=== PATIENT | male | born 1995 | race Caucasian/White ===

== ENCOUNTER 2019-02-04 15:13 | Day surgery (SDC) | payer BC, OTHER ==
--- NOTE | 2019-01-21 10:32 | PREOPHP ---
DATE OF ADMISSION: 02/04/2019 REASON FOR CONSULTATION: Consultation requested by Dr. Quyen Osman for medical evaluation and clearance of a 23-year-old gentleman about to undergo surgery. Thank you, Dr. Osman for allowing us to participate in the care of this patient. HISTORY OF PRESENT ILLNESS: Darwin Cedeño is a 23-year-old gentleman had an accident at work and suffered a comminuted displaced fracture of his right clavicle and currently is being admitted for open reduction and internal fixation of that particular fracture. In terms of Mr. Cedeño' prior medical history, he has had no medical hospitalizations, only surgical procedure he ever had done was a circumcision and other than his fractured right clavicle, when he was younger, he fractured his right arm. Other than that, he has been healthy, he has had no hospitalizations. MEDICATIONS: He takes no chronic medications. ALLERGIES: NOT ALLERGIC TO ANY MEDICATIONS. SOCIAL HISTORY: The patient is single, has no children. He vapes with nicotine, alcohol socially. He does drink coffee. Has no difficulty sleeping at night and is employed. FAMILY HISTORY: Father and mother are both in her 50s. Father has kidney issues. Mother is in good health. One brother is in good health. There is a family history of diabetes and heart as well as cancer and hypertension, no stroke or thyroid. REVIEW OF SYSTEMS: HEENT: He denies any headaches, diplopia, denies any significant headaches or visual or balance issues. CARDIORESPIRATORY: He denies any chest pain or shortness of breath. GASTROINTESTINAL: No melena or hematemesis. GENITOURINARY: No urgency, frequency. MUSCULOSKELETAL: Positive for right clavicular pain. NEUROPSYCHIATRIC: Unremarkable. GENERAL HEALTH: As above. PHYSICAL EXAMINATION: VITAL SIGNS: The patient's blood pressure was 140/76, pulse was 72 and regular, respirations were 18, temperature 98.7, height 5 feet 4 inches, weight 187 pounds. GENERAL: The patient was noted to be a well-developed, well-nourished male, alert and cooperative, in no apparent acute distress, oriented to time, place, and person. HEAD, EARS, EYES, NOSE AND THROAT: Head was atraumatic. Eyes: Pupils were equal, reactive to light and accommodation. Fundi were benign. Tympanic membranes were unremarkable. Nose was negative. Mouth was unremarkable. Fair oral hygiene was present. NECK: Supple without any rigidity. Trachea was midline. Thyroid was within normal limits. Neck veins were flat. Carotid pulses were equal. BACK: Unremarkable. CHEST: Fairly symmetrical swelling in the right anterior clavicular area near his shoulder was noted. BREASTS AND AXILLARY: Did not reveal any masses. LUNGS: Clear to percussion and auscultation. HEART: PMI is fifth intercostal space, midclavicular line. Regular sinus rhythm was noted. No significant murmurs, rubs, or gallops being elicited. ABDOMEN: Soft, good bowel sounds were noted. No significant organomegaly, masses, or tenderness. GENITALIA: Normal male external genitalia. RECTAL AND PROSTATIC: Not done. EXTREMITIES: Did not reveal any clubbing, edema or cyanosis. The patient had great difficulty moving his right upper extremity secondary to pain. Peripheral pulses were physiologic. SKIN: Moist and warm without any eruptions. No gross lymphadenopathy was noted. NEUROLOGIC: Grossly intact. IMPRESSION: 1. Comminuted displaced fracture, right clavicle. 2. Stable health. LABORATORY DATA: Review of laboratory and other data revealed the following: The patient's chemistry panel including electrolytes, glucose, BUN, creatinine, calcium, uric acid, proteins, liver function test, magnesium, CBC, UA, PT and PTT were normal. IMAGING STUDIES: The patient's EKG was normal. Chest x-ray revealed has fractured right clavicle and a displaced fracture. Otherwise, the bony structure was unremarkable, no acute infiltrates were noted nor were there any acute cardiopulmonary changes being noted. DISCUSSION: Dr. Osman, I see no contraindication in this patient undergoing current proposed surgery under desired form of anesthesia. I feel this is a suitable candidate at this particular point in time. Should any medical problems arise during his stay at [facility], I am sure during his stay at [facility], we will be more than happy to follow him up at the appropriate times. Thank you again, Dr. Osman, for allowing us to participate in care of this patient. Dictated By: MARA BREWSTER/LOGAN Conf#: [id number] DID#: [id number] CC: QUYEN OSMAN MD;*EndCC* MTDD
[~2019-02-04] VITALS: Ht 160 cm; Wt 84.0 kg
[2019-02-04] VITALS (17 sets, daily range): BP systolic 135–174; BP diastolic 50–82; PULSE 59–98; RESP 14–18; Ht 160 cm; Wt 84.0 kg
[~2019-02-04 15:13] MED LIST: CEFAZOLIN 2 GM/50 ML (PMX) 50 ML IVPB ONE; LACTATED RINGER'S 1,000 ML IV SCH
--- NOTE | 2019-02-04 16:05 | HPN ---
Date/Time of Note Date/Time of Note DATE: 02/04/19 TIME: 16:05 Interval H&P Admission Note Pt. seen H&P reviewed: No system changes QUYEN OSMAN February 04, 2019 16:05
[2019-02-04] MEDS ORDERED: PROPOFOL 20 ML ONE (17:22)
[2019-02-04] MEDS ORDERED: DEXAMETHASONE 4 MG/ML 5 ML INJ ONE (17:22)
[2019-02-04] MEDS ORDERED: ROCURONIUM 50 MG INJ ONE (17:22)
[2019-02-04] MEDS ORDERED: MIDAZOLAM 1 MG/ML 2 ML INJ ONE (17:22)
[2019-02-04] MEDS ORDERED: CEFAZOLIN 1 GM INJ ONE (17:22)
[2019-02-04] MEDS ORDERED: NEOSTIGMINE 3 MG/3 ML SYRINGE ONE (17:22)
[2019-02-04] MEDS ORDERED: FENTAnyl 50 MCG/ML VIAL ONE (17:22)
[2019-02-04] MEDS ORDERED: ONDANSETRON 4 MG INJ ONE (17:22)
[2019-02-04] MEDS ORDERED: GLYCOPYRROLATE 0.4 MG INJ ONE (17:22)
[2019-02-04] MEDS ORDERED: ROPIVACAINE 0.5 % 30 ML VIAL ONE (17:23)
--- NOTE | 2019-02-04 18:15 | PREAC ---
Date/Time of Note Date/Time of Note DATE: 02/04/19 TIME: 18:13 Anesthesia Eval and Record Evaluation Time Pre-Procedure Interview DATE: 02/04/19 TIME: 18:13 Age 24 Sex male NPO: 8 hrs Preoperative diagnosis right clavicle comminuted displaced fracture Planned procedure ORIF RIGHT CLAVICLE FRACTURE Past Medical History Past Medical History: Includes Pulm: Smoking Hx GI: Obesity Surgery & Anesthesia Issues No known issue Meds Anticoagulation: No Beta Amando within 24 hr: No Reason Beta Amando not given: Pt. not on B-Amando No Active Prescriptions or Reported Meds Current Medications Lactated Ringer's 1,000 ml @ 25 mls/hr Q24H IV Last administered on 02/04/19at 15:43; Admin Dose 25 MLS/HR; Start 02/04/19 at 07:00; Stop 02/05/19 at 22:59 Hydromorphone HCl (Dilaudid) 0.2 mg PACU PRN IV MILD PAIN 1-3; Start 02/04/19 at 18:30; Status UNV Hydromorphone HCl (Dilaudid) 0.4 mg PACU PRN IV MOD PAIN 4-6; Start 02/04/19 at 18:30; Status UNV Hydromorphone HCl (Dilaudid) 0.6 mg PACU PRN IV SEVERE PAIN 7-10; Start 02/04/19 at 18:30; Status UNV Fentanyl (Sublimaze) 25 mcg PACU ORDER PRN IV MILD PAIN 1-3; Start 02/04/19 at 18:30; Status UNV Fentanyl (Sublimaze) 50 mcg PACU ORDER PRN IV MOD PAIN 4-6; Start 02/04/19 at 18:30; Status UNV Fentanyl (Sublimaze) 75 mcg PACU ORDER PRN IV SEVERE PAIN 7-10; Start 02/04/19 at 18:30; Status UNV Oxycodone/ Acetaminophen (Percocet (5/ 325)) 1 tab PACU ORDER PRN PO .PAIN 1-5; Start 02/04/19 at 18:30; Status UNV Oxycodone/ Acetaminophen (Percocet (5/ 325)) 2 tab PACU ORDER PRN PO .PAIN 6-10; Start 02/04/19 at 18:30; Status UNV Ondansetron HCl (Zofran Inj) 4 mg PACU ORDER PRN IV NAUSEA/VOMITING; Start 02/04/19 at 18:30; Status UNV Trimethobenzamide HCl (Tigan) 200 mg PACU ORDER PRN IM NAUSEA/VOMITING; Start 02/04/19 at 18:30; Status UNV Labetalol HCl (Labetalol) 5 mg PACU ORDER PRN IV HIGH BLOOD PRESSURE; Start 02/04/19 at 18:30; Status UNV Meds reviewed: Yes Allergies Coded Allergies: No Known Allergy (Verified , 02/04/19) Allergies Reviewed: Yes Labs/Studies Labs Reviewed: Reviewed by anesthesiologist test: N/A Pre-procedure Exam Last vitals Vital Signs Date Temp Pulse Resp B/P (MAP) Pulse Ox O2 O2 Flow FiO2 Time Delivery Rate 02/04/19 98.7 59 16 135/72 97 Room Air 15:52 (93) Airway: Adequate mouth opening, Adequate thyromental dist Mallampati: Mallampati II Teeth: Normal Lung: Normal Heart: Normal ASA Physical Status ASA physical status: 2 Emergency: None Planned Anesthetic General/MAC: ETT Nerve block: Brachial plexus (left) Planned Pain Management Single shot nerve block, Parenteral pain med Pre-operative Attestations Prior to commencing anesthesia and surgery, the patient was re-evaluated, there was verification of: *The patient's identity *The results of appropriate recent lab work and preoperative vital signs *The above evaluation not changing prior to induction *Anesthetic plan, risk benefits, alternative and complications discussed with patient/family; questions answered; patient/family understands, accepts and wishes to proceed. Aquilino Carlson M.D. February 04, 2019 18:15
[2019-02-04] MEDS ORDERED: EPHEDrine 25 MG/5 ML SYG IV PRN (18:30)
[2019-02-04] MEDS ORDERED: IPRATROPIUM (NEB) 0.5 MG/2.5 ML AMP HHN PRN (18:30)
[2019-02-04] MEDS ORDERED: FENTAnyl 50 MCG/ML VIAL IV PRN ×3 (18:30)
[2019-02-04] MEDS ORDERED: OXYCODONE/ACETAMINOPHEN (5/325) TAB PO PRN ×2 (18:30)
[2019-02-04] MEDS ORDERED: ALBUTEROL 0.083% (NEB) 2.5 MG/3 ML AMP HHN PRN (18:30)
[2019-02-04] MEDS ORDERED: TRIMETHOBENZAMIDE 100 MG/ML VIAL IM PRN (18:30)
[2019-02-04] MEDS ORDERED: MIDAZOLAM 1 MG/ML 2 ML INJ IV PRN (18:30)
[2019-02-04] MEDS ORDERED: LABETALOL HCL 20MG INJ IV PRN (18:30)
[2019-02-04] MEDS ORDERED: MEPERIDINE 25 MG INJ IV PRN (18:30)
[2019-02-04] MEDS ORDERED: DIPHENHYDRAMINE 50 MG INJ IV PRN (18:30)
[2019-02-04] MEDS ORDERED: ONDANSETRON 4 MG INJ IV PRN (18:30)
[2019-02-04] MEDS ORDERED: HYDROmorphONE 1 MG/5 ML IV SYRINGE IV PRN ×2 (18:30)
[2019-02-04] MEDS ORDERED: VANCOMYCIN 1 GM (PMX) 250 ML ONE (20:22)
--- NOTE | 2019-02-04 20:47 | OPPN ---
Date/Time of Note Date/Time of Note DATE: 02/04/19 TIME: 20:46 Operative Report Preoperative Diagnosis right clavicle midshaft fracture Postoperative Diagnosis right clavicle midshaft fracture Operation/Procedure Performed right clavicle midshaft fracture ORIF Surgeon see signature line therapy administrative assistant none Anesthesia: general Estimated blood loss: 0 - 10 ml's Transfusion Required none Specimen none Grafts/Implants none Complications none QUYEN OSMAN February 04, 2019 20:47
[2019-02-04] MEDS: HYDROmorphONE 1 MG/5 ML IV SYRINGE IV PRN ×2 (21:14→21:40)
--- NOTE | 2019-02-04 21:18 | OPR ---
DATE OF OPERATION: 02/04/2019 SURGEON: Quyen Jaramillo MD. ANESTHESIA: General. PREOPERATIVE DIAGNOSIS: Right midshaft clavicle fracture. POSTOPERATIVE DIAGNOSIS: Right midshaft clavicle fracture. PROCEDURE: Open reduction and internal fixation of right midshaft clavicle fracture. OPERATIVE FINDINGS: Significant displacement and shortening with significant callus formation and pr olonged mobilization of fracture fragments to achieve reduction. INDICATION FOR PROCEDURE: This is a 24-year-old male with injury to the right shoulder, who was seen in clinic and diagnosed with displaced clavicle fracture. Options were discussed. The patient elec idalmis to proceed with surgical intervention, understanding the risks and benefits. DESCRIPTION OF PROCEDURE: The patient was seen in the preoperative area. All further questions were answered. Again, he gave informed consent, understanding the risks and benefits. The patient was t aken to operative suite and placed in supine position. A peripheral nerve block was performed by the anesthesia team and the patient was placed under general anesthesia. The right upper extremity was prepped with ChloraPrep stick and draped in usual sterile fashion. After Ancef 2 grams IV was given, a curvilinear incision over the midshaft clavicle was utilized with sharp dissection carried down th rough skin and subcutaneous tissue. The fascia overlying the clavicle was incised sharply and the cr ossing sensory nerves were protected. The fracture was identified. There was significant callus for mation as well as shortening. The fracture callus was mobilized using a [place] elevator as well as whipple ction and a rongeur. There was significant callus, which required prolonged dissection and the fract ure fragments were quite shortened after 3 months. A crab claw was placed on both sides of the fract ure and the fracture was reduced into a more anatomic position. An Acumed clavicle plate was placed across the fracture site and cortical and locking screws were placed proximally and distally. X-ray imaging showed appropriate hardware placement and bony alignment. The wound was copiously irrigated and fascia layer closed with 3-0 Monocryl. Skin closed with 5-0 nylon. Xeroform was placed over the wound followed by sterile gauze and Tegaderm bandage. The patient was awakened from anesthesia and taken to the postoperative suite in stable condition, tolerated the procedure well without complicati on. SPECIMENS: None. ESTIMATED BLOOD LOSS: 5 mL. COUNTS: Sponge, instrument, needle counts correct. TOURNIQUET TIME: Not applicable. CONDITION ON DISCHARGE: Stable. The patient was given a nonrefillable 5-day prescription for pain medication for surgery today. Statement on complexity: Please note that this fracture had significant increased complexity compare d to a routine clavicle fracture. There was significant callus formation as well as shortening of th e fracture fragment, which required prolonged dissection and clearing out of the callus formation req uiring an extra 30 minutes of time compared to a standard surgery. This required increased technical skill and time. Dictated By: QUYEN RAMIREZ/LOGAN Conf#: [id number] DID#: [id number]
[2019-02-04] MEDS: hydrALAzine 20 MG INJ IV PRN ×2 (21:26→21:38)
--- NOTE | 2019-02-05 12:28 | PAC ---
Date/Time of Note Date/Time of Note DATE: 02/05/19 TIME: 12:25 Post-Anesthesia Notes Post-Anesthesia Note Last documented vital signs Vital Signs Date Temp Pulse Resp B/P (MAP) Pulse Ox O2 O2 Flow FiO2 Time Delivery Rate 02/04/19 98 18 155/57 96 Room Air 22:06 (89) 02/04/19 98.0 21:20 02/04/19 2.0 21:16 Activity: WNL Respiratory function: WNL Cardiovascular function: WNL Mental status: Baseline Pain reasonably controlled: Yes Hydration appropriate: Yes Nausea/Vomiting absent: Yes Aquilino Carlson M.D. February 05, 2019 12:28
== END 2019-02-04 22:40 | disposition home or self-care (01) ==
LOC: SDS 15:13
PROVIDERS: ATTEND Orthopaedic Surgery Hand Surgery
DX: S42.021A Displaced fracture of shaft of right clavicle, initial encounter for closed fracture (principal); X58.XXXA Exposure to other specified factors, initial encounter; Y99.0 Civilian activity done for income or pay
CPT/HCPCS: 23515; 73000; J0360; J0690; J1100; J1170; J2250; J2405; J2710; J2795; J3010; J3370